=== PATIENT | male | born 1965 | race Hispanic/Latino ===

== ENCOUNTER → 2023-09-23 | Outpatient (CLI) | payer BC | END | disposition home or self-care (01) | LOC: RAH 15:56 | PROVIDERS: ATTEND Internal Medicine | DX: M75.82 Other shoulder lesions, left shoulder (principal) | CPT/HCPCS: 73030 ==

== ENCOUNTER → 2023-11-18 | Outpatient (CLI) | payer BC | END | disposition home or self-care (01) | LOC: RAH 14:46 | PROVIDERS: ATTEND Internal Medicine | DX: K75.3 Granulomatous hepatitis, not elsewhere classified (principal); N23 Unspecified renal colic | CPT/HCPCS: 74176 ==

== ENCOUNTER → 2023-12-23 | Outpatient (CLI) | payer BC | END | disposition home or self-care (01) | LOC: RAH 11:16 | PROVIDERS: ATTEND Internal Medicine | DX: S46.012D Strain of muscle(s) and tendon(s) of the rotator cuff of left shoulder, subsequent encounter (principal); S46.092D Other injury of muscle(s) and tendon(s) of the rotator cuff of left shoulder, subsequent encounter; M19.012 Primary osteoarthritis, left shoulder; X58.XXXD Exposure to other specified factors, subsequent encounter | CPT/HCPCS: 73221 ==